=== PATIENT | female | born 1985 | race Caucasian/White ===

== ENCOUNTER 2019-01-30 15:18 | Emergency (ER) | payer MEDICAID ==
[~2019-01-30] VITALS: Ht 175.3 cm; Wt 91.6 kg
[2019-01-30 15:23] VITALS: Ht 175.3 cm; Wt 91.6 kg
[2019-01-30 15:36] VITALS: BP 138/85
== END 2019-01-30 15:36 | disposition home or self-care (01) ==
LOC: ED 15:18
DX: H60.91 Unspecified otitis externa, right ear (principal)

== ENCOUNTER 2020-04-07 13:04 | Emergency (ER) | payer MEDICAID ==
[~2020-04-07] VITALS: Ht 175.3 cm; Wt 85.7 kg
[2020-04-07 13:42] VITALS: BP 123/90; Ht 175.3 cm; Wt 85.7 kg
== END 2020-04-07 16:04 | disposition left against medical advice (07) ==
LOC: ED 13:04
DX: Z53.21 Procedure and treatment not carried out due to patient leaving prior to being seen by health care provider (principal)